=== PATIENT | female | born 1975 | race Caucasian/White ===

== ENCOUNTER 2020-08-10 23:02 | Emergency (ER) | payer BC, SELFPAY ==
[2020-08-10 23:09] VITALS: BP 143/83; PULSE 87; RESP 18; TEMP 37; O2SAT 96; BMI 32.3
--- NOTE | 2020-08-11 00:02 | [facility].EDGENADL ---
ED Disposition Clinical Impression: Strain of neck muscle Qualifiers: Encounter type: initial encounter Qualified Code(s): S16.1XXA - Strain of muscle, fascia and tendon at neck level, initial encounter Disposition: Home, Self-Care Condition on Discharge: Good Prescriptions: Cyclobenzaprine HCl [Flexeril 10mg tablet] 10 mg PO Q8HP PRN #15 tab PRN Reason: Breakthru Mild Pain Transmission Status: Pending to [facility] #[id number] Referrals: Bob Hedrick [Primary Care Provider] - - Critical Care Critical Care Time: No Attestation: On 08/10/20, the high probability of a clinically significant, sudden or life threatening deterioration of the following system(s) required my full and direct attention, intervention and personal management. The time I documented below is in addition to time spent performing reported procedures but includes the following listed in this critical care notation. Medical Decision Making - Medical Records Medical records reviewed: Yes: I reviewed the patient's medical records. - Michael Inquiry Pt receiving controlled substance: No Vital Signs: 08/10/20 23:09 Temperature 98.6 F Temperature Source Oral Pulse Rate [Left] 87 Respiratory Rate 18 Blood Pressure [Right Arm] 143/83 H Blood Pressure Mean [Right Arm] 103 Blood Pressure Source [Right Arm] Automatic Cuff Blood Pressure Position [Right Arm] Sitting 02 Sat by Pulse Oximetry 96 Oxygen Delivery Method Room Air Orders (Tests/Meds): ED MEDICATIONS Discontinued Medications Generic Name Dose Route Start Last Admin Trade Name Freq PRN Reason Stop Dose Admin Cyclobenzaprine HCl 5 mg 08/10/20 23:20 08/10/20 23:33 Flexeril 10mg Tablet PO 08/10/20 23:21 5 mg ONCE ONE Administration Cyclobenzaprine HCl 5 mg 08/10/20 23:36 08/10/20 23:33 Flexeril 10mg Tablet PO 08/10/20 23:37 5 mg ONCE ONE Administration Medical Decision Narrative: Patient presents for neck pain. Examination she has tenderness to palpation along her entire trapezius muscle on the left side, patient does not have any red flag symptoms, normal neurological exam in upper and lower extremities, no fevers, well-appearing vitals. Patient is seeing her primary care doctor tomorrow, was given Flexeril with minimal benefit, stable on reassessment. Patient minimal to discharge and follow-up with her primary care doctor. General Adult HPI - General Chief complaint: Neck Pain/Injury Stated complaint: neck pain Time Seen by Provider: 08/10/20 23:02 Mode of Arrival: Ambulatory Limitations: No Limitations Description of Symptoms (Recalled from ER Triage Doc. by RN): PATIENT REPORTS ACUTE/CHRONIC NECK PAIN SINCE 08/04/20 THAT HAS GOTTEN WORSE. SAW HER PCP ON 08/08/20 AND RECIEVED 30MG IM TORADOL WITH 125MG IM SOLUMEDROL WITH RELIEF FOR THE DAY, INTO THE NEXT. REPORTS THE PAIN HAS NOT GOTTEN BETTER SINCE. HAS ALSO BEEN TAKING 600MG IBUPROFEN Q6 HOURS NEEDED. CMS INTACT - History of Present Illness HPI narrative: 44-year-old female presenting for neck pain, neck pain is been going on for the past several days, patient went to primary care doctor on Friday, was diagnosed with muscle sprain, given Toradol and steroid shot, pain progressively persistent, patient had ultrasound of her thyroid done on Friday, was going to follow-up with her primary care doctor tomorrow, patient's pain is still present but she presented to ER for work-up. Patient has had lidocaine patches, capsaicin cream, heat, ibuprofen and Tylenol without significant benefit. Patient is not yet tried muscle relaxants, is on gabapentin but no other controlled substances. - Related Data Home Medications Medication Instructions Recorded Confirmed Gabapentin [Gabapentin 300mg Cap] 300 mg PO TID 03/07/18 03/07/18 Zolpidem Tartrate [Ambien 5mg 5 mg PO PM 03/07/18 03/07/18 tablet] Previous Rx's Medication Instructions Recorded cephALEXin [Keflex 500mg Cap] 500 m
[2020-08-11 00:28] VITALS: BP 140/79; PULSE 74; RESP 18; TEMP 36.8; O2SAT 96
== END 2020-08-11 00:27 | disposition home or self-care (01) ==
PROVIDERS: Emergency Provider Emergency Medicine; PCP Family Medicine
DX: S16.1XXA Strain of muscle, fascia and tendon at neck level, initial encounter (principal); F17.210 Nicotine dependence, cigarettes, uncomplicated; Z88.0 Allergy status to penicillin; Z90.09 Acquired absence of other part of head and neck; Z90.710 Acquired absence of both cervix and uterus
CPT/HCPCS: 99281

== ENCOUNTER 2021-09-12 13:55 | Emergency (ER) | payer BC, SELFPAY ==
--- NOTE | 2021-09-12 13:59 | HMH.EDGENADL ---
ED Disposition Clinical Impression: Bilateral hand pain Disposition: Home, Self-Care Condition on Discharge: Good Additional Instructions: Follow with PCP in 1 to 2 days. Return emergency part for fever, chest pain, shortness of breath. Referrals: Chapis Brock APRN [Primary Care Provider] - 3 days Time of Disposition: 15:38 - Critical Care Critical Care Time: No Attestation: On , the high probability of a clinically significant, sudden or life threatening deterioration of the following system(s) required my full and direct attention, intervention and personal management. The time I documented below is in addition to time spent performing reported procedures but includes the following listed in this critical care notation. Medical Decision Making - Medical Records Medical records reviewed: Yes: I reviewed the patient's medical records. - Michael Inquiry Pt receiving controlled substance: No Vital Signs: 09/12/21 14:06 09/12/21 15:01 Temperature 98.4 F Temperature Source Oral Pulse Rate 64 Pulse Rate [Right Radial] 63 Respiratory Rate 18 18 Blood Pressure 134/68 Blood Pressure [Right Arm] 174/84 H Blood Pressure Mean 90 Blood Pressure Mean [Right Arm] 114 Blood Pressure Source [Right Arm] Automatic Cuff Blood Pressure Position [Right Arm] Sitting 02 Sat by Pulse Oximetry 96 96 Oxygen Delivery Method Room Air Room Air - Lab Data Lab results reviewed: Yes: I reviewed the patient's lab results. Lab Results 09/12/21 14:53: Sodium 138, Potassium 4.4, Chloride 103, Carbon Dioxide 30, Anion Gap 9.4, BUN 6 L, Creatinine 0.70, Estimated Creat Clear 169, Estimated GFR 89, Est GFR ( Amer) 108, Glucose 139 H, Calcium 8.8 Result diagrams: 09/12/21 14:53 Medical Decision Narrative: 46yo F evaluated for pain in bilateral hands. Patient no acute distress on initial evaluation though she is noted to be crying and hyperventilating. Patient's physical exam is unremarkable. 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 Patient is concerned she might have carpal tunnel. Discussed with the patient that her current nerve distribution of pain does not fit with carpal tunnel. Noted to the patient that she would have to have a cervical lesion across multiple vertebra to affect all of her fingers the way she is describing. Did obtain a metabolic panel as the patient is concerned maybe her electrolytes are out of whack and therefore she has neuropathy. Metabolic panel is unremarkable. Discussed further work-up via PCP, such as CT versus MR versus EMG. Patient voiced understanding. General Adult HPI - General Stated complaint: both hands numb Time Seen by Provider: 09/12/21 13:59 Mode of Arrival: Ambulatory - History of Present Illness HPI narrative: 46yo F presents the emergency department secondary to pain in bilateral hands. Symptoms began middle of last week and just her right hand and now involve both hands. She denies any trauma, fall. No history of cervical injury. Patient denies any other signs or symptoms of systemic illness. She denies any previous surgery to her C-spine. She complains of pain to all fingers bilaterally. Stating her fingertips hurt the worst. She has some pain to bilateral palms, however not as severe as her hands. - Related Data Home Medications Medication Instructions Recorded Confirmed Gabapentin [Gabapentin 300mg Cap] 300 mg PO TID 03/07/18 03/07/18 Zolpidem Tartrate [Ambien 5mg 5 mg PO PM 03/07/18 03/07/18 tablet] Previous Rx's Medication Instructions Recorded cephALEXin [Keflex 500mg Cap] 500 mg PO QID #28 cap 03/07/18 Dicyclomine HCl [Bentyl 10mg 10 mg PO TIDP PRN #10 cap 05/15/18 capsule] Cyclobenzaprine HCl [Flexeril 10mg 10 mg PO Q8HP PRN #15 tab 08/11/20 tablet] Allergies Allergy/AdvReac Type Severity Reaction Status Date / Time Penicillins Allergy Verified 05/15/18 14:23 [facility] History - Hepatitis A Screen Drug use h
[2021-09-12 14:06] VITALS: BP 174/84; PULSE 63; RESP 18; TEMP 36.9; O2SAT 96; BMI 41.1
[2021-09-12 15:01] VITALS: BP 134/68; PULSE 64; RESP 18; O2SAT 96
[2021-09-12 15:05] LABS: Chloride 103 mmol/L (98-107); Potassium 4.4 mmoL/L (3.5-5.1); Sodium 138 mmol/L (136-145)
[2021-09-12 15:08] LABS: Anion Gap 9.4 mEq/L (5-15); Blood Urea Nitrogen 6 mg/dl (7-17); Calcium 8.8 mg/dl (8.4-10.2); Carbon Dioxide 30 mmol/L (22.0-30.0); Creatinine Clearance Estimated 169 mL/min (50-200); Estimated Glomerular Filt Rate 89 ml/min (>60); GFR (African American) 108 ML/MIN (>60); Glucose 139 mg/dl (74-100)
[2021-09-12 15:51] VITALS: BP 140/76; PULSE 63; RESP 17; TEMP 37; O2SAT 95
== END 2021-09-12 15:51 | disposition home or self-care (01) ==
PROVIDERS: Emergency Provider Family Medicine; PCP Nurse Practitioner Family
DX: M79.642 Pain in left hand (principal); M79.641 Pain in right hand
CPT/HCPCS: 80048; 99282